=== PATIENT | male | born 1940 | race Caucasian/White ===

== ENCOUNTER 2016-12-23 19:04 | Inpatient (IN) | payer MEDICARE ==
[2016-12-23] MEDS ORDERED: ONDANSETRON 4 MG/2 ML VIAL IVP PRN (20:35)
[2016-12-23] MEDS ORDERED: HYDROcod/ACETAM 5/325 MG TABLET PO PRN (20:35)
[2016-12-23] MEDS ORDERED: ACETAMINOPHEN 325 MG TABLET PO PRN (20:35)
[2016-12-23] MEDS ORDERED: SODIUM CHLORIDE FLUSH 0.9% 10 ML SYRINGE IVP PRN (20:35)
[2016-12-23] MEDS ORDERED: ONDANSETRON ODT 4 MG TABLET TL PRN (20:35)
[2016-12-23] MEDS ORDERED: ACETAMINOPHEN 325 MG TABLET PO SCH (20:43)
[2016-12-23] MEDS: PANTOPRAZOLE 40 MG VIAL IVP SCH (21:57)
[2016-12-23] MEDS ORDERED: diphenhydrAMINE 25 MG CAPSULE PO SCH (22:00)
[2016-12-23] MEDS: SODIUM CHLORIDE FLUSH 0.9% 10 ML SYRINGE IVP SCH (22:00)
[2016-12-24] MEDS ORDERED: MORPHINE 2 MG/ML SYRINGE IVP PRN (02:35)
[2016-12-24] MEDS: PANTOPRAZOLE 40 MG VIAL IVP SCH ×2 (05:07→16:32)
[2016-12-24] MEDS: SODIUM CHLORIDE FLUSH 0.9% 10 ML SYRINGE IVP SCH ×3 (05:07→21:35)
[2016-12-24] MEDS: POLYETHYLENE GLYCOL 3350 17 GM PACKET PO SCH (08:17)
[2016-12-24] MEDS: SODIUM/POTASSIUM/MAG SULFATES 354 ML PREP KIT PO SCH (21:35)
[2016-12-25] MEDS: SODIUM CHLORIDE FLUSH 0.9% 10 ML SYRINGE IVP SCH ×3 (06:33→23:44)
[2016-12-25] MEDS: PANTOPRAZOLE 40 MG VIAL IVP SCH ×2 (06:33→15:19)
[2016-12-25] MEDS: POLYETHYLENE GLYCOL 3350 17 GM PACKET PO SCH (07:36)
[2016-12-25] MEDS: SODIUM/POTASSIUM/MAG SULFATES 354 ML PREP KIT PO SCH (08:02)
[2016-12-25] MEDS ORDERED: CYANOCOBALAMIN 1,000 MCG/ML VIAL IM ONE (11:00)
[2016-12-25] MEDS ORDERED: LACTATED RINGERS 1,000 ML IV ONE (12:38)
[2016-12-26] MEDS ORDERED: HALOPERIDOL 5 MG/ML VIAL IM ONE (00:02)
[2016-12-26] MEDS: PANTOPRAZOLE 40 MG VIAL IVP SCH (06:29)
[2016-12-26] MEDS: SODIUM CHLORIDE FLUSH 0.9% 10 ML SYRINGE IVP SCH (06:29)
[2016-12-26] MEDS ORDERED: PANTOPRAZOLE 40 MG TABLET PO SCH (07:00)
[2016-12-26] MEDS: POLYETHYLENE GLYCOL 3350 17 GM PACKET PO SCH (09:36)
[2016-12-26] MEDS ORDERED: CHOLECALCIFEROL 5,000 UNIT CAPSULE PO SCH (12:00)
[2016-12-26] MEDS ORDERED: FUROSEMIDE 20 MG TABLET PO SCH (12:00)
[2016-12-26] MEDS ORDERED: NEOSTIGMINE 1 MG/1 ML 10 ML MDV IVP ONE (14:30)
[2016-12-26] MEDS ORDERED: LIDOCAINE-MPF 2% 5 ML VIAL IM ONE (14:30)
[2016-12-26] MEDS ORDERED: SUCCINYLCHOLINE 200 MG/10 ML VIAL IVP ONE (14:30)
[2016-12-26] MEDS ORDERED: PROPOFOL 1000 MG/100 ML IV ONE (14:30)
[2016-12-26] MEDS ORDERED: GLYCOPYRROLATE 1 MG/5 ML VIAL IVP ONE (14:30)
== END 2016-12-26 14:00 | disposition home or self-care (01) | DRG 699 ==
PROC: 0D5H8ZZ Destruction of Cecum, Via Natural or Artificial Opening Endoscopic (ICD-10-PCS; principal; 2016-12-23)
PROC: 0D5M8ZZ Destruction of Descending Colon, Via Natural or Artificial Opening Endoscopic (ICD-10-PCS; principal; 2016-12-23)
PROC: 0DB68ZX Excision of Stomach, Via Natural or Artificial Opening Endoscopic, Diagnostic (ICD-10-PCS; principal; 2016-12-23)
PROC: 0D5K8ZZ Destruction of Ascending Colon, Via Natural or Artificial Opening Endoscopic (ICD-10-PCS; principal; 2016-12-23)
PROC: 30233N1 Transfusion of Nonautologous Red Blood Cells into Peripheral Vein, Percutaneous Approach (ICD-10-PCS; principal; 2016-12-23)
DX: N28.9 Disorder of kidney and ureter, unspecified (principal); K92.1 Melena; D64.9 Anemia, unspecified; D62 Acute posthemorrhagic anemia; K22.8 Other specified diseases of esophagus; B96.81 Helicobacter pylori [H. pylori] as the cause of diseases classified elsewhere; K29.60 Other gastritis without bleeding; K21.9 Gastro-esophageal reflux disease without esophagitis; E66.09 Other obesity due to excess calories; Z68.33 Body mass index [BMI] 33.0-33.9, adult; R41.89 Other symptoms and signs involving cognitive functions and awareness; K57.30 Diverticulosis of large intestine without perforation or abscess without bleeding; K44.9 Diaphragmatic hernia without obstruction or gangrene; D12.0 Benign neoplasm of cecum; D12.2 Benign neoplasm of ascending colon; D12.4 Benign neoplasm of descending colon; K64.8 Other hemorrhoids; K64.4 Residual hemorrhoidal skin tags

== ENCOUNTER 2016-12-28 14:28 | Inpatient (IN) | payer MEDICARE ==
[2016-12-28] MEDS ORDERED: ACETAMINOPHEN 325 MG TABLET PO PRN (15:05)
[2016-12-28] MEDS ORDERED: ONDANSETRON ODT 4 MG TABLET TL PRN (15:05)
[2016-12-28] MEDS ORDERED: SODIUM CHLORIDE FLUSH 0.9% 10 ML SYRINGE IVP PRN (15:05)
[2016-12-28] MEDS ORDERED: TETANUS/DIPHTHERIA TOXOID 0.5 ML SYRINGE IM ONE (18:45)
[2016-12-28] MEDS: PANTOPRAZOLE 40 MG TABLET PO SCH (20:29)
[2016-12-28] MEDS: SODIUM CHLORIDE 0.9% 1,000 ML IV SCH (20:30)
[2016-12-28] MEDS: SODIUM CHLORIDE FLUSH 0.9% 10 ML SYRINGE IVP SCH (22:35)
[2016-12-29] MEDS: SODIUM CHLORIDE 0.9% 1,000 ML IV SCH (06:11)
[2016-12-29] MEDS: SODIUM CHLORIDE FLUSH 0.9% 10 ML SYRINGE IVP SCH (06:11)
[2016-12-29] MEDS: PANTOPRAZOLE 40 MG TABLET PO SCH (06:11)
[2016-12-29] MEDS ORDERED: ASPIRIN EC 81 MG TABLET PO SCH (09:00)
[2016-12-29] MEDS ORDERED: POLYETHYLENE GLYCOL 3350 17 GM PACKET PO SCH (09:00)
[2016-12-29] MEDS ORDERED: GADOBUTROL 10 MMOL/10 ML VIAL IVP ONE (09:30)
[2016-12-29] MEDS ORDERED: ATORVASTATIN 10 MG TABLET PO SCH (21:00)
== END 2016-12-29 13:51 | disposition home or self-care (01) | DRG 65 ==
DX: I63.9 Cerebral infarction, unspecified (principal); D62 Acute posthemorrhagic anemia; R40.4 Transient alteration of awareness; K21.9 Gastro-esophageal reflux disease without esophagitis; K44.9 Diaphragmatic hernia without obstruction or gangrene; E66.9 Obesity, unspecified; Z68.34 Body mass index [BMI] 34.0-34.9, adult; Z79.899 Other long term (current) drug therapy; S61.210A Laceration without foreign body of right index finger without damage to nail, initial encounter; W45.8XXA Other foreign body or object entering through skin, initial encounter; Y92.009 Unspecified place in unspecified non-institutional (private) residence as the place of occurrence of the external cause

== ENCOUNTER 2017-07-23 12:05 | Inpatient (IN) | payer MEDICARE ==
[2017-07-23] MEDS ORDERED: SODIUM CHLORIDE 0.9% 1,000 ML IV ONE ×2 (12:31→13:24)
[2017-07-23 12:50] LABS: BASOPHILS % (AUTO) 0.2 %; EOSINOPHILS % (AUTO) 0.5 %; HCT - HEMATOCRIT 28.9 % (42.0-52.0); HGB - HEMOGLOBIN 9.8 g/dL (14.0-18.0); LYMPHOCYTES % (AUTO) 2.8 %; MEAN CORPUSCULAR HEMOGLOBIN 28.9 pg (27.0-31.0); MEAN CORPUSCULAR HGB CONC 33.8 g/dL (32.0-36.0); MEAN CORPUSCULAR VOLUME 85.5 fL (80.0-94.0); MEAN PLATELET VOLUME 7.1 fL (7.4-11.4); MONOCYTES % (AUTO) 5.3 %; NEUTROPHILS % (AUTO) 91.2 %; RED BLOOD COUNT 3.37 10^6/uL (4.70-6.10); RED CELL DISTRIBUTION WIDTH 16.3 % (12.0-15.0)
[2017-07-23 12:54] LABS: INR 1.3 (0.8-1.2); PT - PROTHROMBIN TIME 14.1 secs (9.9-12.6)
[2017-07-23 12:59] LABS: ALBUMIN/GLOBULIN RATIO 0.8 (1.0-2.2); BILIRUBIN,TOTAL 0.5 mg/dL (0.2-1.0); CALCIUM 8.5 mg/dL (8.5-10.3); CREATININE 1.1 mg/dL (0.6-1.2); POTASSIUM 3.9 mmol/L (3.5-5.0); TOTAL PROTEIN 6.4 g/dL (6.7-8.2)
[2017-07-23 13:01] LABS: PARTIAL THROMBOPLASTIN TIME 24.4 secs (24.9-33.3)
[2017-07-23 13:08] LABS: BAND NEUTROPHILS % (MANUAL) 11 %; EOSINOPHILS % (MANUAL) 1 %; LYMPHOCYTES % (MANUAL) 2 %; NEUTROPHILS % (MANUAL) 74 %; TOTAL CELLS COUNTED 100
--- NOTE | 2017-07-23 13:08 | ED Physician Documentation ---
History of Present Illness - Stated complaint Stated Complaint: WEAKNESS - Chief complaint Chief Complaint: Abd Pain - History obtained from History obtained from: Patient, Family - History of Present Illness Timing: How many days ago (several) Pain level max: 2 Pain level now: 2 Improved by: rest Worsened by: walking - Additonal information Additional information: Patient is a 77-year-old male Who presents to the emergency department with 2 days of dark tarry stools. Has had a history of a GI bleed in the past. States last time this happened they could not find a reason. Denies any home medication use. Denies any alcohol. has been feeling weak over the past 2 days as well. has recurrent hiccups from his "hiatal hernia". Denies any falls. has had subjective fevers. No cough. States has had a decreased appetite over the past 2 days as well. Review of Systems Ten Systems: 10 systems reviewed and negative Constitutional: reports: Fever (subjective today) Eyes: denies: Decreased vision Ears: denies: Ear pain Nose: denies: Rhinorrhea / runny nose, Congestion Throat: denies: Sore throat Cardiac: denies: Chest pain / pressure Respiratory: denies: Cough GI: reports: Bloody / black stool (black). denies: Diarrhea, Hematemesis : denies: Dysuria Skin: denies: Rash Musculoskeletal: denies: Neck pain, Back pain Neurologic: denies: Headache PD PAST MEDICAL HISTORY - Past Medical History Past Medical History: Yes Cardiovascular: None Respiratory: None Neuro: TIA Endocrine/Autoimmune: None GI: GERD, GI bleed, Hiatal hernia : None HEENT: None Psych: None Musculoskeletal: None Derm: None - Past Surgical History Past Surgical History: Yes - Present Medications Home Medications: Ambulatory Orders Medication Instructions Recorded Confirmed No Known Home Medications [No 07/23/17 07/23/17 Known Home Medications] - Allergies Allergies/Adverse Reactions: Allergies Allergy/AdvReac Type Severity Reaction Status Date / Time No Known Drug Allergies Allergy Verified 07/23/17 12:14 - Social History Does the pt smoke?: No Smoking Status: Never smoker Does the pt drink ETOH?: No Does the pt have substance abuse?: No - Immunizations Immunizations are current?: Yes - POLST Patient has POLST: No PD ED PE NORMAL - Vitals Vital signs reviewed: Yes - General General: Alert and oriented X 3, No acute distress, Other (pale) - HEENT HEENT: Moist mucous membranes - Neck Neck: Supple, no meningeal sign - Cardiac Cardiac: RRR - Respiratory Respiratory: No respiratory distress, Clear bilaterally - Abdomen Abdomen: Soft, Non tender, Non distended - Rectal Rectal: Other (black stool, hemoccult + QC passed.) - Back Back: No spinal TTP - Derm Derm: Warm and dry - Extremities Extremities: No deformity, No tenderness to palpate - Neuro Neuro: Alert and oriented X 3, physics technician 2-12 intact, No motor deficit, No sensory deficit, Normal speech - Psych Psych: Normal mood, Normal affect, Other (poor historian) Results - Vitals Vitals: Vital Signs - 24 hr 07/23/17 07/23/17 12:12 13:43 Temperature 36.9 C 37.9 C H Heart Rate 88 73 Respiratory 20 12 Rate Blood Pressure 115/54 L 119/55 L O2 Saturation 96 96 Oxygen O2 Source Room air - EKG (time done) 1218 Rate: Rate (enter#) (77) Rhythm: NSR [place]: Normal Intervals: Normal VA QRS: Normal Ischemia: Normal ST segments, Other (early transition) - Labs Labs: Laboratory Tests 07/23/17 07/23/17 07/23/17 12:30 12:30 12:30 WBC 17.0 H RBC 3.37 L Hgb 9.8 L Hct 28.9 L MCV 85.5 MCH 28.9 MCHC 33.8 RDW 16.3 H Plt Count 229 MPV 7.1 L Neut # DRAINAGE INSPECTOR Lymph # DRAINAGE INSPECTOR Christian # DRAINAGE INSPECTOR Eos # DRAINAGE INSPECTOR Baso # DRAINAGE INSPECTOR Absolute Nucleated RBC DRAINAGE INSPECTOR Total Counted 100 Band Neuts % (Manual) 11 H Myelocytes % 4 H Nucleated RBC % DRAINAGE INSPECTOR Neutrophils # (Manual) 14.5 H Lymphocytes # (Manual) 0.3 L Monocytes # (Manual) 1.4 H Eosinophils # (Manual) 0.2 Manual Slide Review Indicated Platelet Morphology RARE GIANT PLATELETS RBC Morph Micro Appear 1+ ANISOCYTOSIS PT 14.1 H INR 1.3 H APTT 24.4 L Sodium 127 L Potassium 3.9 Chloride 90 L Carbon Dioxide 24 Anion Gap 13.0 BUN 25 H Creatinine 1.1 Estimated GFR (MDRD) 65 L Glucose 120 H Calcium 8.5 Total Bilirubin 0.5 AST 35 ALT 35 Alkaline Phosphatase 88 Total Protein 6.4 L Albumin 2.8 L Globulin 3.6 Albumin/Globulin Ratio 0.8 L Lipase 28 Urine Color Urine Clarity Urine pH Ur Specific [place] Urine Protein Urine Glucose (UA) Urine Ketones Urine Occult Blood Urine Nitrite Urine Bilirubin Urine Urobilinogen Ur Leukocyte Esterase Ur Microscopic Review Urine Culture Comments Blood Type Antibody Screen 07/23/17 07/23/17 13:04 13:52 WBC RBC Hgb Hct MCV MCH MCHC RDW Plt Count MPV Neut # Lymph # Christian # Eos # Baso # Absolute Nucleated RBC Total Counted Band Neuts % (Manual) Myelocytes % Nucleated RBC % Neutrophils # (Manual) Lymphocytes # (Manual) Monocytes # (Manual) Eosinophils # (Manual) Manual Slide Review Platelet Morphology RBC Morph Micro Appear PT INR APTT Sodium Potassium Chloride Carbon Dioxide Anion Gap BUN Creatinine Estimated GFR (MDRD) Glucose Calcium Total Bilirubin AST ALT Alkaline Phosphatase Total Protein Albumin Globulin Albumin/Globulin Ratio Lipase Urine Color YELLOW Urine Clarity CLEAR Urine pH 6.0 Ur Specific [place] 1.015 Urine Protein NEGATIVE Urine Glucose (UA) NEGATIVE Urine Ketones 15 H Urine Occult Blood NEGATIVE Urine Nitrite NEGATIVE Urine Bilirubin NEGATIVE Urine Urobilinogen 0.2 (NORMAL) Ur Leukocyte Esterase NEGATIVE Ur Microscopic Review NOT INDICATED Urine Culture Comments NOT INDICATED Blood Type O POSITIVE Antibody Screen NEGATIVE - Rads (name of study) ct abd/pelvis Radiology: Prelim report reviewed, EMP read contemporaneously, See rad report ( Cyst or fluid collection between the pancreatic head and duodenum with associated inflammatory changes, pancreatitis versus duodenitis. Follow-up is recommended to exclude neoplasm. 2. Right lung base infiltrate. 3. Diverticulosis and other chronic or incidental findings. ) PD MEDICAL DECISION MAKING - ED course Complexity details: reviewed old records, reviewed results, re-evaluated patient , considered differential, d/w patient, d/w family, d/w [facility] w[facility] consultant ED course: Patient is a 77-year-old male who presents to the emergency department with a GI bleed. He is anemic. Type and screen performed. Patient is also weak and has some alteration in his baseline mental status. CT scan reveals what appears to be duodenitis that would be consistent with his bleeding. Started on a PPI. Dr. Pedro will also consult surgery for further evaluation if needed. This document was made in part using voice recognition software. While efforts are made to proofread this document, sound alike and grammatical errors may occur. Departure - Departure Disposition: 66 [facility] DC/Xfer Clinical Impression: GI bleed Qualifiers: GI bleed type/associated pathology: melena Qualified Code(s): K92.1 - Melena Anemia Qualifiers: Anemia type: unspecified type Qualified Code(s): D64.9 - Anemia, unspecified Leukocytosis Qualifiers: Leukocytosis type: unspecified Qualified Code(s): D72.829 - Elevated white blood cell count, unspecified Condition: Stable Discharge Date/Time: 07/23/17 15:00
[2017-07-23 13:09] LABS: NP AUTO DIFFERENTIAL? YES; PLATELET MORPHOLOGY RARE GIANT PLATELETS (NORMAL)
[2017-07-23 13:10] LABS: NP MAN DIFFERENTIAL? NO
[2017-07-23] MEDS ORDERED: PANTOPRAZOLE 40 MG VIAL IVP STA (13:18)
[2017-07-23] MEDS ORDERED: ONDANSETRON 4 MG/2 ML VIAL IVP STA (13:19)
[2017-07-23] MEDS ORDERED: ONDANSETRON 4 MG/2 ML VIAL ONE (13:25)
[2017-07-23] MEDS ORDERED: PANTOPRAZOLE 40 MG VIAL ONE (13:26)
[2017-07-23] MEDS ORDERED: IOPAMIDOL-300 100 ML VIAL ONE (13:43)
[2017-07-23 14:09] LABS: BILIRUBIN,URINE NEGATIVE (NEGATIVE)
[2017-07-23 14:10] LABS: UA CHARGE (STRIP ONLY) YES; UR CULTURE IF IND NOT INDICATED
[2017-07-23] MEDS ORDERED: ONDANSETRON 4 MG/2 ML VIAL IVP PRN (14:18)
[2017-07-23] MEDS ORDERED: ONDANSETRON ODT 4 MG TABLET TL PRN (14:18)
[2017-07-23] MEDS ORDERED: IOPAMIDOL-300 100 ML VIAL IVP ONE (14:26)
--- NOTE | 2017-07-23 14:44 | CT Preliminary Report ---
Exam: CT ABDOMEN/PELVIS W/ IMPRESSION: 1. Cyst or fluid collection between the pancreatic head and duodenum with associated inflammatory thor nges, pancreatitis versus duodenitis. Follow-up is recommended to exclude neoplasm. 2. Right lung base infiltrate. 3. Diverticulosis and other chronic or incidental findings. [facility] SITE ID: [id number]
--- NOTE | 2017-07-23 14:46 | CT Report ---
EXAM: CT ABDOMEN AND PELVIS EXAM DATE: 07/23/2017 02:19 PM. CLINICAL HISTORY: Abd pain, melena. COMPARISONS: None. TECHNIQUE: Routine helical CT imaging was performed through the abdomen and pelvis. IV contrast: 100M L OF ISOVUE 300. Enteric contrast: No. Reconstructions: Coronal and sagittal. In accordance with CT protocol optimization, one or more of the following dose reduction techniques w ere utilized for this exam: automated exposure control, adjustment of mA and/or KV based on patient s ize, or use of iterative reconstructive technique. FINDINGS: Lung Bases: Patchy and somewhat nodular appearing infiltration in right lung base. Otherwise clear. N o effusion. Liver: Normal. No masses. Gallbladder/Bile Ducts: Unremarkable. Spleen: Normal. Pancreas: Hazy infiltration of fat adjacent to the pancreatic head with 2.5 cm fluid collection or cy stic lesion projecting between the pancreatic head and the second portion of the duodenum. Wall thick ening and hazy ill-definition of first and second portions of the duodenum. Adrenal Glands: Normal. Kidneys: Tiny cyst on the left. Otherwise unremarkable. No hydronephrosis. Peritoneal Cavity/Bowel: Mild to moderate colonic diverticulosis. No free fluid, free air or adenopat hy. No masses or acute inflammatory process. The appendix is well visualized and normal. Pelvic Organs: Normal. The bladder and visualized pelvic organs are within normal limits. Vasculature: No aneurysms or other significant abnormality. Bones: Prominent degenerative changes. Other: None. IMPRESSION: 1. Cyst or fluid collection between the pancreatic head and duodenum with associated inflammatory thor nges, pancreatitis versus duodenitis. Follow-up is recommended to exclude neoplasm. 2. Right lung base infiltrate. 3. Diverticulosis and other chronic or incidental findings. [facility] Referring Provider Line: [phone] SITE ID: [id number]
--- NOTE | 2017-07-23 16:37 | HISTORY & PHYSICAL EXAMINATION ---
DATE OF ADMISSION: 07/23/2017 PRIMARY CARE PROVIDER: Oseas Mcknight MD ADMITTING PROVIDER: Cleo Pedro MD CHIEF COMPLAINT: Weakness and black tarry stool. HISTORY OF PRESENT ILLNESS: This gentleman is an interesting person in that he presented on December 23, 2016, with a history of gradually worsening mental status changes, a change in personality, and found almost down in his home with bloody feces. At that time, he was treated as a GI bleed, transfused from a hemoglobin of 3. Upper and lower endoscopy were done, and no pathology was found other than diverticulosis. An antral biopsy had Helicobacter gastritis with intestinal metaplasia. 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 He was discharged on December 26, 2016, after this workup and was to see his primary care provider and be referred to a insurance billing clerk for possible video endoscopy. He returned December 28, 2016, with metabolic encephalopathy. He had cut his hand, did not remember how we did it. He is confused, lethargic. With that admission from December 28, 2016, to December 30, 2016, he had an internal capsule stroke. Between then and now, the patient has been in stable health. He has improved quite a bit mentally and is back to baseline, but in the last few days, his stools have become black, dark and tarry, foul-smelling. His hiatal hernia has been giving him hiccoughs nonstop. He does not have a history of alcohol abuse. He does not have cirrhosis or esophageal varices. In addition to the black tarry stools, he has been feeling very weak, very tired. He feels like he had fevers, but he can not tell me what the temperature is. He denies chest pain, abdominal pain. No appetite. The stools are black and tarry but there is no diarrhea. He was seen in the emergency room by Dr. Blackburn. Temperature was 36.9, blood pressure 115/54 with a heart rate of 88. He was an alert, oriented, elderly man. His stool was black, Hemoccult positive. No other real findings on physical exam. Hemoglobin was 9.8. This gentleman was discharged with a hemoglobin of 9.3 in December. PAST MEDICAL HISTORY 1. 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 2. GI bleed, unknown source, December 2016. Status post colonoscopy, status post EGD as above. 3. Morbid obesity. ALLERGIES: NO KNOWN DRUG ALLERGIES. MEDICATIONS: None. SOCIAL HISTORY: He was born in [place], [place]. He went to [employer]. 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 describes him as probably on the autistic spectrum scale of emotional encounter, one of the reasons that they ended up living in separate households since about 2014. There are still , but it is much more peaceful for them to live apart. She is his second . He has 2 grown sons from his first marriage but is not in contact with them. He has been living on [facility] since about 2014. He has no history of recreational substance abuse. No history of tobacco abuse. FAMILY HISTORY: Both his parents in their 80s and 90s. They did not have cancer, heart attack, stroke. They of old age. He has no siblings. His 2 grown sons are healthy as far as he knows. REVIEW OF SYSTEMS GENERAL: Much easier to obtain with this go-around. When I met him in December 2016 , he was lethargic with psychomotor slowing. Today, he is alert, denies any constitutional complaints of fevers, chills, sweats, or unexpected weight changes. That was until today when he felt like he could be having a fever, but he has not taken his temperature. ENT: He denies glaucoma or cataracts. Wears glasses. Denies deafness. He has no problems with swallowing. PULMONARY: He denies chest congestion, coughing, wheezing. He does not have a history of bronchitis or asthma. He does not have problems with allergies. CARDIAC: He denies any history of heart attack, angina, orthopnea, edema. He denies rheumatic heart disease or valvular heart disease. GASTROINTESTINAL: Positive as above. GENITOURINARY: He has decreased stream now but denies urgency, frequency, nocturia or dysuria or hematuria or flank pain. JOINTS: If he sits at the computer for too long, his back, neck and shoulders get a little bit stiff. Hands will sometimes gets stiff, but that has been chronic for quite some time. No new joint complaints. SKIN: Denies any new body rashes or lesions. PSYCHIATRIC: No history of depression, schizophrenia, but again, has difficulty with people in general and describes him on the autistic spectrum scale. 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 As far as he is concerned, the stroke has left him with no residuals. PHYSICAL EXAMINATION VITAL SIGNS: Temperature is 37.9 now. Pulse is 73. Blood pressure is 119/55. Respirations 12. He is a pleasant, large, middle-aged white male with snowy white champion and hair. Not wearing glasses. In no acute distress in the ER rney. HEAD AND NECK: Red cheeks with acne rosacea. Pupils reactive. Sclerae nonicteric. Speech is normal. Oral mucosa moist and pink. NECK: Supple without goiter, bruits or thyromegaly. LUNGS: Clear in a barrel chest without crackles, rhonchi, or wheezing, and he has no increased respiratory effort. CARDIOVASCULAR: PMI is normally placed with regular rate and rhythm. No murmurs. ABDOMEN: Obese, soft, and very minimal epigastric tenderness. Throughout the entire time I am with him in the emergency room and getting his history and doing his exam, he has been nonstop hiccups. He says that started about 2 days ago. He has got quiet bowel sounds. EXTREMITIES: Large but without clubbing or cyanosis. Trace edema where the ankle socks dig into his skin, but when I checked for pitting edema, none present. Good foot pulses. NEUROLOGIC: He is alert and oriented to person, place and time. I find no evidence of a stroke, and he has cranial nerves intact with one not tested. Hand grasp strength is good and normal. 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 He can lift both legs off the bed. No tremors. DIAGNOSTIC STUDIES: White cell count is 17. Hemoglobin is 9.8. Hematocrit 28.9. Platelets 229. At discharge December 28, 2016, white cell count was 8.7, hemoglobin 9.3, hematocrit 28.9, platelets 162. Today's differential is 11% bands, 4% myelocytes. INR is 1.3. Sodium 127, potassium 3.9, BUN 25, creatinine 1.1, random glucose 120, protein 6.4, albumin 2.8, direct bilirubin 0.5. AST and ALT are normal. Urinalysis has some ketonuria but is otherwise negative. Before to the floor, CT of the abdomen was done because of the hiccupping and epigastric discomfort. He has a hazy infiltration of fat adjacent to the pancreatic head with a 2.5 cm fluid collection or cystic lesion projecting between the pancreatic head and the second portion of the duodenum. He has wall thickening and hazy ill definition of the first and second portions of duodenum. Right lung base infiltrate. Chronic diverticulosis. No other acute findings. ASSESSMENT/PLAN 1. Chronic blood loss anemia and now with melena. The patient has a history of this from December of this year and no source of bleeding was found. We will need to speak to his primary care provider and see what the thought process was between then and now with regard to workup. The patient is vague about this, that or evasive and will not answer my questions, but he otherwise a compliant and pleasant individual. My suspicion is that he has not seen his PCP for followup which means he didn't get the GI evaluaiton. Differential diagnosis as a cause of his bleed could be a duodenal ulcer with perforation to the pancreas or the reverse of pancreas pressing against the second portion of the duodenum. Diverticular bleed. However, stool was black and tarry and I would think that diverticular bleed would be more bright red blood per rectum. a. PLAN: For the anemia, he will have hemoglobin checked every 6 hours. b. For the possibility of perforated ulcer, start on Protonix 40 mg IV push b.i.d.. c. To delineate better source of GI bleed, order nuclear medicine red cell tag scan. d. Surgery Consult with Dr. Rios. 2. Abnormal pancreatic head on CT. Differential diagnosis could be pancreatitis versus neoplasm. We will discuss with Radiology what other imaging study I can do to delineate this better. We will check tumor markers, as well. Will also order MRCP. 3. H. Pylori gastritis 12/2016. Will call Dr. Hoyt's office to find out if he ever saw her and whether he received treatment. 4. Deep vein thrombosis prophylaxis will be DAVIS hose. Encourage the patient to ambulate. We will avoid anticoagulation at this time because of risk of bleeding. 5. FULL CODE STATUS. JOB #: [id number] EXT JOB #:[id number] [id number]
[2017-07-23] MEDS: SODIUM CHLORIDE FLUSH 0.9% 10 ML SYRINGE IVP SCH (17:16)
[2017-07-23] MEDS: PANTOPRAZOLE 40 MG VIAL IVP SCH (17:16)
--- NOTE | 2017-07-23 17:26 | Nuclear Medicine Prelim Report ---
Exam: NM GI BLEED/TAGGED RBC IMPRESSION: Normal study. No scintigraphic evidence of active GI bleed. [facility] SITE ID: [id number]
--- NOTE | 2017-07-23 17:29 | Nuclear Medicine Report ---
EXAM: GASTROINTESTINAL BLEED LOCALIZATION STUDY WITH VASCULAR FLOW STUDY EXAM DATE: 07/23/2017 04:54 PM. CLINICAL HISTORY: Recurrent melena. EGG and colonoscope neg. COMPARISON: None. TECHNIQUE: The patient's own red blood cells were labeled with 29.3 mCi Tc-99m pertechnetate accordin g to department protocol. Following the administration of the radiolabeled red blood cells, dynamic f low images were acquired for the initial 2 minutes. Next, dynamic gamma camera imaging for a total of 60 minutes post injection was acquired from the anterior projection. Postvoid images were also acqui red. FINDINGS: No foci of progressive antegrade or retrograde radiotracer activity to suggest etiology of GI bleed. Physiological uptake in vasculature, spleen, liver, and bladder. IMPRESSION: Normal study. No scintigraphic evidence of active GI bleed. [facility] Referring Provider Line: [phone] SITE ID: [id number]
[2017-07-23 20:34] LABS: BASOPHILS % (AUTO) 0.3 %; EOSINOPHILS # (AUTO) 0.1 10^3/uL (0.0-0.7); EOSINOPHILS % (AUTO) 0.5 %; HCT - HEMATOCRIT 26.8 % (42.0-52.0); HGB - HEMOGLOBIN 8.9 g/dL (14.0-18.0); LYMPHOCYTES # (AUTO) 0.5 10^3/uL (1.5-3.5); LYMPHOCYTES % (AUTO) 3.3 %; MEAN CORPUSCULAR HEMOGLOBIN 28.6 pg (27.0-31.0); MEAN CORPUSCULAR HGB CONC 33.2 g/dL (32.0-36.0); MEAN CORPUSCULAR VOLUME 86.2 fL (80.0-94.0); MEAN PLATELET VOLUME 6.9 fL (7.4-11.4); MONOCYTES # (AUTO) 0.8 10^3/uL (0.0-1.0); MONOCYTES % (AUTO) 5.4 %; NEUTROPHILS # (AUTO) 13.1 10^3/uL (1.5-6.6); NEUTROPHILS % (AUTO) 90.5 %; RED CELL DISTRIBUTION WIDTH 16.9 % (12.0-15.0); UNCORRECTED WHITE BLOOD COUNT 14.4 x10^3/uL; WHITE BLOOD COUNT 14.4 x10^3/uL (4.8-10.8)
[2017-07-23 21:04] LABS: PLATELET ESTIMATE, MANUAL NORMAL (130-450,000) (NORMAL)
[2017-07-24 05:07] LABS: EOSINOPHILS # (AUTO) 0.1 10^3/uL (0.0-0.7); HGB - HEMOGLOBIN 8.6 g/dL (14.0-18.0)
[2017-07-24 05:15] LABS: BASOPHILS % (AUTO) 0.2 %; EOSINOPHILS % (AUTO) 0.7 %; HCT - HEMATOCRIT 26.2 % (42.0-52.0); LYMPHOCYTES # (AUTO) 0.6 10^3/uL (1.5-3.5); LYMPHOCYTES % (AUTO) 3.6 %; MEAN CORPUSCULAR HEMOGLOBIN 28.5 pg (27.0-31.0); MEAN CORPUSCULAR HGB CONC 32.9 g/dL (32.0-36.0); MEAN CORPUSCULAR VOLUME 86.6 fL (80.0-94.0); MONOCYTES # (AUTO) 0.9 10^3/uL (0.0-1.0); MONOCYTES % (AUTO) 5.7 %; NEUTROPHILS # (AUTO) 13.7 10^3/uL (1.5-6.6); NEUTROPHILS % (AUTO) 89.8 %; RED BLOOD COUNT 3.03 10^6/uL (4.70-6.10); UNCORRECTED WHITE BLOOD COUNT 15.3 x10^3/uL; WHITE BLOOD COUNT 15.3 x10^3/uL (4.8-10.8)
[2017-07-24 05:17] LABS: ALBUMIN/GLOBULIN RATIO 0.9 (1.0-2.2); BILIRUBIN,TOTAL 0.5 mg/dL (0.2-1.0); CALCIUM 7.9 mg/dL (8.5-10.3); CREATININE 1.1 mg/dL (0.6-1.2); POTASSIUM 3.9 mmol/L (3.5-5.0); TOTAL PROTEIN 5.6 g/dL (6.7-8.2)
[2017-07-24 05:55] LABS: PLATELET ESTIMATE, MANUAL NORMAL (130-450,000) (NORMAL); PLATELET MORPHOLOGY NORMAL APPEARANCE (NORMAL)
[2017-07-24 05:56] LABS: NP AUTO DIFFERENTIAL? NO; NP MAN DIFFERENTIAL? YES
[2017-07-24] MEDS: PANTOPRAZOLE 40 MG VIAL IVP SCH ×2 (06:02→16:10)
[2017-07-24] MEDS: SODIUM CHLORIDE FLUSH 0.9% 10 ML SYRINGE IVP PRN ×3 (06:02→19:57)
[2017-07-24] MEDS: SODIUM CHLORIDE FLUSH 0.9% 10 ML SYRINGE IVP SCH ×3 (06:02→20:37)
[2017-07-24] MEDS: POLYETHYLENE GLYCOL 3350 17 GM PACKET PO SCH (09:46)
[2017-07-24 10:43] LABS: BASOPHILS % (AUTO) 0.2 %; EOSINOPHILS # (AUTO) 0.1 10^3/uL (0.0-0.7); EOSINOPHILS % (AUTO) 0.6 %; HGB - HEMOGLOBIN 8.8 g/dL (14.0-18.0); LYMPHOCYTES # (AUTO) 0.4 10^3/uL (1.5-3.5); LYMPHOCYTES % (AUTO) 2.8 %; MEAN CORPUSCULAR HEMOGLOBIN 29.1 pg (27.0-31.0); MEAN CORPUSCULAR HGB CONC 33.8 g/dL (32.0-36.0); MEAN CORPUSCULAR VOLUME 85.9 fL (80.0-94.0); MEAN PLATELET VOLUME 6.5 fL (7.4-11.4); MONOCYTES # (AUTO) 0.9 10^3/uL (0.0-1.0); MONOCYTES % (AUTO) 5.9 %; NEUTROPHILS # (AUTO) 14.2 10^3/uL (1.5-6.6); NEUTROPHILS % (AUTO) 90.5 %; RED BLOOD COUNT 3.02 10^6/uL (4.70-6.10); RED CELL DISTRIBUTION WIDTH 16.8 % (12.0-15.0); UNCORRECTED WHITE BLOOD COUNT 15.7 x10^3/uL
[2017-07-24 11:21] LABS: PLATELET ESTIMATE, MANUAL NORMAL (130-450,000) (NORMAL); PLATELET MORPHOLOGY 1+ GIANT PLATELETS (NORMAL); WHITE BLOOD COUNT 15.7 x10^3/uL (4.8-10.8)
[2017-07-24 11:23] LABS: WBC MORPHOLOGY (MULTIPLE) NORMAL APPEARANCE (NORMAL)
--- NOTE | 2017-07-24 13:21 | MRI Report ---
EXAM: MR ABDOMEN WITHOUT CONTRAST (MR CHOLANGIOPANCREATOGRAPHY) EXAM DATE: 07/24/2017 11:05 AM. CLINICAL HISTORY: Pancreatic/duodenal inflammation. Negative endoscopy December 2016. COMPARISON: Abdominal CT with IV contrast prior day. TECHNIQUE: Multiplanar breath-hold T1 and T2 sequences obtained through the abdomen on an MR scanner. Dedicated 2D and 3D MRCP sequences obtained through the biliary and pancreatic ducts. No intravenous contrast given. Patient respiratory motion artifacts. FINDINGS: Lung Bases: Right lung base infiltrate was better demonstrated on prior CT. Bilateral lower lobe infi ltrates and/or atelectasis are noted on series 401 image 29. Liver: The liver has normal size, morphology and signal. No evidence of mass. The intrahepatic bile d ucts appear normal. CBD: The extrahepatic ducts appear normal. The CBD is 3 mm in diameter. Gallbladder: The gallbladder is partially distended and appears normal with no wall thickening or sto ne. Pancreas: Peripancreatic edema noted. The pancreatic duct measures 1-2 mm in diameter and appears nor mal with no stone or stricture. Spleen: The spleen appears normal. Kidneys and Adrenals: The kidneys appear normal with no mass or hydronephrosis. The adrenals appear n ormal. Bowel: Persistent 2.8 x 1.8 cm fluid collection medial to descending duodenum. Retroperitoneum: The retroperitoneal structures appear normal with no mass or lymphadenopathy. IMPRESSION: 1. Exam is concerning for perforated descending duodenal ulcer. Persistent fluid collection along the posteromedial aspect of proximal descending duodenum. Although this is a common location for diverti cula, a wall is not definitively demonstrated. Soft tissue edema is again noted adjacent to pancreas head and descending duodenum. No generalized free air evident. 2. Right lower lobe airspace disease was better demonstrated on CT prior day. 3. No choledocholithiasis or main pancreatic ductal dilatation evident. Case discussed with Dr. Pedro on day of exam at 1:08 PM. [facility] Referring Provider Line: [phone] SITE ID: [id number]
--- NOTE | 2017-07-24 14:05 | PROVIDER PROGRESS NOTE ---
Subjective - Prog Note Date Prog Note Date: 07/24/17 Prog Note Time: 14:02 - Subjective Pt reports feeling: No change Subjective: He continues to have uncontrollable hiccups. He was just so happy to have some food this morning after being n.p.o. for a nuclear medicine study as well as an MRCP. He is spiked a temperature this morning to 38.2. Continues to have mild epigastric abdominal pain Tired but denies chest pain, shortness of breath I did ask him about his follow-up with his primary care provider, Dr. Mcknight. It looks like he never followed up with his primary care provider. Nor did he follow-up with Dr. Hoyt. And as such never got a video endoscopy nor did he ever get treatment for his H. pylori status.I asked him what were the barriers to his follow-through. He is reply was basically to shrug his shoulders and said there was none. He just did not do it. Current Medications - Current Medications Current Medications: Active Medications Acetaminophen (Tylenol) 650 mg PO Q4HR PRN PRN Reason: Pain 1 to 4 Piperacillin Sod/Tazobactam (Sod 3.375 gm/ Sodium Chloride) 100 mls @ 200 mls/ hr IV Q6H [facility] Ondansetron HCl (Zofran Inj) 4 mg IVP Q6HR PRN PRN Reason: Nausea / Vomiting Ondansetron HCl (Zofran Odt) 4 mg TL Q6HR PRN PRN Reason: Nausea / Vomiting Pantoprazole Sodium (Protonix) 40 mg IVP BIDAC [facility] Last Admin: 07/24/17 06:02 Dose: 40 mg Polyethylene Glycol (Miralax) 17 gm PO DAILY [facility] Last Admin: 07/24/17 09:46 Dose: Not Given Sodium Chloride (Normal Saline Flush 0.9%) 10 ml IVP PRN PRN PRN Reason: NEEDED PER PROVIDER ORDERS Last Admin: 07/24/17 06:02 Dose: 10 ml Sodium Chloride (Normal Saline Flush 0.9%) 10 ml IVP Q8HR [facility] Last Admin: 07/24/17 06:02 Dose: 10 ml No Known Home Medications [No Known Home Medications] 07/23/17 Objective - Vital Signs/Intake & Output Reviewed Vital Signs: Yes Vital Signs: Vital Signs x48h Temp Pulse Resp BP Pulse Ox 07/24/17 08:00 37.9 C H 88 20 140/61 H 94 Intake & Output: Intake & Output 07/21/17 07/22/17 07/23/17 07/24/17 23:59 23:59 23:59 23:59 Intake Total 2100 Balance 2099 - Objective General Appearance: positive: No acute distress, Alert, Other (pale, elderly male WN, WD (centripital obesity) with , sitting up in chair with at bedside.) Eyes Bilateral: positive: PERRL, EOMI ENT: positive: Other (glasses. flaking eyelashes) Neck: negative: No JVD, Stiff neck, Carotid bruit Respiratory: negative: Chest non-tender, Wheezes, Rales, Rhonchi Cardiovascular: positive: Regular rate & rhythm, Systolic murmur. negative: Gallop/S4, Friction rub Abdomen: positive: No organomegaly, Nml bowel sounds, No distention, Tenderness (mild in epigastrium), Other (hiccups) Skin: positive: Warm, Dry, Pallor Extremities: positive: Full ROM, No pedal edema Neurologic/Psychiatric: positive: Oriented x3, CN's nml (2-12), Motor nml - Lab Results Fish Bones: 07/24/17 10:35 07/24/17 04:50 Other Labs: Lab Results x24hrs 07/24/17 07/24/17 07/24/17 Range/Units 10:35 04:50 04:50 WBC 15.7 H 15.3 H (4.8-10.8) x10^3/uL RBC 3.02 L 3.03 L (4.70-6.10) 10^6/uL Hgb 8.8 L 8.6 L (14.0-18.0) g/dL Hct 26.0 L 26.2 L (42.0-52.0) % MCV 85.9 86.6 (80.0-94.0) fL MCH 29.1 28.5 (27.0-31.0) pg MCHC 33.8 32.9 (32.0-36.0) g/dL RDW 16.8 H 17.0 H (12.0-15.0) % Plt Count 272 253 (130-450) 10^3/uL MPV 6.5 L 7.0 L (7.4-11.4) fL Neut # 14.2 H 13.7 H (1.5-6.6) 10^3/uL Lymph # 0.4 L 0.6 L (1.5-3.5) 10^3/uL Kleberg # 0.9 0.9 (0.0-1.0) 10^3/uL Eos # 0.1 0.1 (0.0-0.7) 10^3/uL Baso # 0.0 0.0 (0.0-0.1) 10^3/uL Absolute Nucleated RBC 0.00 0.00 x10^3/uL Band Neuts % (Manual) Not Reportable Nucleated RBC % 0.0 0.0 /100WBC Differential Comment MANUAL=AUTO DIFF Manual Slide Review Indicated WBC Morphology NORMAL APPEARANCE (NORMAL) Platelet Estimate NORMAL (130-450,000) NORMAL (130-450,000) (NORMAL) Platelet Morphology 1+ GIANT PLATELETS NORMAL APPEARANCE (NORMAL) RBC Morph Micro Appear 1+ HYPOCHROMASIA 1+ ANISOCYTOSIS (NORMAL) Sodium 129 L (135-145) mmol/L Potassium 3.9 (3.5-5.0) mmol/L Chloride 97 L (101-111) mmol/L Carbon Dioxide 24 (21-32) mmol/L Anion Gap 8.0 (6-13) BUN 19 (6-20) mg/dL Creatinine 1.1 (0.6-1.2) mg/dL Estimated GFR (MDRD) 65 L (>89) Glucose 112 H (70-100) mg/dL Calcium 7.9 L (8.5-10.3) mg/dL Total Bilirubin 0.5 (0.2-1.0) mg/dL AST 29 (10-42) IU/L ALT 29 (10-60) IU/L Alkaline Phosphatase 78 (42-121) IU/L Total Protein 5.6 L (6.7-8.2) g/dL Albumin 2.6 L (3.2-5.5) g/dL Globulin 3.0 (2.1-4.2) g/dL Albumin/Globulin Ratio 0.9 L (1.0-2.2) 07/23/ Range/Units 20:26 WBC 14.4 H (4.8-10.8) x10^3/uL RBC 3.10 L (4.70-6.10) 10^6/uL Hgb 8.9 L (14.0-18.0) g/dL Hct 26.8 L (42.0-52.0) % MCV 86.2 (80.0-94.0) fL MCH 28.6 (27.0-31.0) pg MCHC 33.2 (32.0-36.0) g/dL RDW 16.9 H (12.0-15.0) % Plt Count 236 (130-450) 10^3/uL MPV 6.9 L (7.4-11.4) fL Neut # 13.1 H (1.5-6.6) 10^3/uL Lymph # 0.5 L (1.5-3.5) 10^3/uL Kleberg # 0.8 (0.0-1.0) 10^3/uL Eos # 0.1 (0.0-0.7) 10^3/uL Baso # 0.0 (0.0-0.1) 10^3/uL Absolute Nucleated RBC 0.01 x10^3/uL Band Neuts % (Manual) Nucleated RBC % 0.0 /100WBC Differential Comment Manual Slide Review WBC Morphology (NORMAL) Platelet Estimate NORMAL (130-450,000) (NORMAL) Platelet Morphology (NORMAL) RBC Morph Micro Appear NORMAL APPEARANCE (NORMAL) Sodium (135-145) mmol/L Potassium (3.5-5.0) mmol/L Chloride (101-111) mmol/L Carbon Dioxide (21-32) mmol/L Anion Gap (6-13) BUN (6-20) mg/dL Creatinine (0.6-1.2) mg/dL Estimated GFR (MDRD) (>89) Glucose (70-100) mg/dL Calcium (8.5-10.3) mg/dL Total Bilirubin (0.2-1.0) mg/dL AST (10-42) IU/L ALT (10-60) IU/L Alkaline Phosphatase (42-121) IU/L Total Protein (6.7-8.2) g/dL Albumin (3.2-5.5) g/dL Globulin (2.1-4.2) g/dL Albumin/Globulin Ratio (1.0-2.2) Assessment/Plan - Problem List (1) GI bleed Impression: He presented as a few days of severe fatigue with 2 days of melena. He does not take nonsteroidals. Past medical history significant for a GI bleed in December 2016 with a hemoglobin of 3. He was transfused and at discharge his hemoglobin was 9. He did have an EGD and colonoscopy with that visit and EGD shows Helicobacter pylori gastritis. He never did follow through with proton pump inhibitors, nor did he ever see the surgeon in follow-up. He also did not do treatment for H. pylori. He never followed through with his physician Dr. Mcknight. His hemoglobin has been stable so far but has drifted 1 g down. He started at 9.8 on admission and is 8.8 now. Workup since admission has been in abdomen pelvis CT showing a fluid collection between the posterior duodenum and anterior pancreas. Pancreatic head is slightly fuzzy and inflamed. GI bleed scan, nuclear medicine shows a normal study with no scintigraphic evidence of GI bleed Unfortunately, his MRCP shows a large perforated duodenal ulcer. Plan: I have discussed the case with he and his . I have also discussed with Dr. Rios. Dr. Rios recommends transfer to a higher level of care. This patient may need a Whipple. Patient is amenable to transfer. Continue monitoring of hemoglobin and hematocrit and vital signs. He has had a fever so we will start Zosyn I have called [facility] and [facility]. They do not have beds. As such I have called [facility]. Transfuse as necessary. He has already been typed and screened Change to regular diet but he may need to return to NPO status. Qualifiers: GI bleed type/associated pathology: melena Qualified Code(s): K92.1 - Melena (2) H. pylori infection Impression: present on biopsy 12/2016. pathology sent to Dr. Perez, a [facility] physician, NOT Dr. Hoyt. As such she never saw the report. And the patient never followed up. Start treatment.
[2017-07-24] MEDS: PIPERACILLIN/TAZOBACTAM 3.375 GM in SODIUM CHLORIDE 0.9% MINIBAG 100 ML IV SCH ×2 (14:13→19:57)
[2017-07-24] MEDS: ACETAMINOPHEN 325 MG TABLET PO PRN (16:09)
[2017-07-24] MEDS: SODIUM CHLORIDE 0.9% 1,000 ML IV SCH (22:02)
[2017-07-25] MEDS: ACETAMINOPHEN 325 MG TABLET PO PRN ×3 (02:35→23:55)
[2017-07-25] MEDS: PIPERACILLIN/TAZOBACTAM 3.375 GM in SODIUM CHLORIDE 0.9% MINIBAG 100 ML IV SCH ×4 (02:36→20:10)
[2017-07-25] MEDS: SODIUM CHLORIDE FLUSH 0.9% 10 ML SYRINGE IVP SCH ×3 (05:57→20:15)
[2017-07-25] MEDS: PANTOPRAZOLE 40 MG VIAL IVP SCH ×2 (06:21→16:12)
[2017-07-25] MEDS: SODIUM CHLORIDE FLUSH 0.9% 10 ML SYRINGE IVP PRN ×2 (06:21→16:12)
[2017-07-25 06:25] LABS: HCT - HEMATOCRIT 27.6 % (42.0-52.0); HGB - HEMOGLOBIN 8.9 g/dL (14.0-18.0); MEAN CORPUSCULAR HEMOGLOBIN 28.5 pg (27.0-31.0); MEAN CORPUSCULAR HGB CONC 32.2 g/dL (32.0-36.0); MEAN CORPUSCULAR VOLUME 88.5 fL (80.0-94.0); MEAN PLATELET VOLUME 6.2 fL (7.4-11.4); RED BLOOD COUNT 3.12 10^6/uL (4.70-6.10); RED CELL DISTRIBUTION WIDTH 17.2 % (12.0-15.0); WHITE BLOOD COUNT 16.7 x10^3/uL (4.8-10.8)
[2017-07-25 06:33] LABS: ALBUMIN/GLOBULIN RATIO 0.8 (1.0-2.2); BILIRUBIN,TOTAL 0.8 mg/dL (0.2-1.0); BUN - BLOOD UREA NITROGEN 14 mg/dL (6-20); CARBON DIOXIDE - CO2 24 mmol/L (21-32); CHLORIDE 97 mmol/L (101-111); CREATININE 1.1 mg/dL (0.6-1.2); GFR - MDRD 65 (>89); GLUCOSE 103 mg/dL (70-100); MAGNESIUM 2.2 mg/dL (1.7-2.8); PHOSPHORUS 3.4 mg/dL (2.5-4.6); SODIUM 131 mmol/L (135-145); TOTAL PROTEIN 6.1 g/dL (6.7-8.2)
[2017-07-25 06:42] LABS: CALCIUM, IONIZED 1.09 mmol/L (1.15-1.33); VBG PH 7.365 (7.31-7.41)
[2017-07-25] MEDS: SODIUM CHLORIDE 0.9% 1,000 ML IV SCH ×2 (08:58→23:58)
[2017-07-25] MEDS: POLYETHYLENE GLYCOL 3350 17 GM PACKET PO SCH (10:25)
--- NOTE | 2017-07-25 11:46 | PROVIDER PROGRESS NOTE ---
Subjective - Prog Note Date Prog Note Date: 07/25/17 Prog Note Time: 11:44 - Subjective Pt reports feeling: No change Subjective: Yesterday he was up out of the bed, sitting in the chair, ambulating to the bathroom. He tells me that he is fine today. No change. But he has not gotten out of bed this morning. He had a fever to 39.2 last night. This morning he is more tachypneic at 24 with shallow respirations. O2 sat has dropped to 90% on 1-1/2-2 L. Yesterday he was 94% on 2 L. He denies any epigastric pain right now. He denies any abdominal pain at all. No diarrhea. No shortness of breath subjectively. No chest pain. No cough. Current Medications - Current Medications Current Medications: Active Medications Acetaminophen (Tylenol) 650 mg PO Q4HR PRN PRN Reason: Pain 1 to 4 Last Admin: 07/25/17 02:35 Dose: 650 mg Piperacillin Sod/Tazobactam (Sod 3.375 gm/ Sodium Chloride) 100 mls @ 200 mls/ hr IV Q6H [facility] Last Infusion: 07/25/17 09:30 Dose: Infused Sodium Chloride (Normal Saline 0.9%) 1,000 mls @ 83 mls/hr IV .Q12H3M [facility] Last Admin: 07/25/17 08:58 Dose: 83 mls/hr Ondansetron HCl (Zofran Inj) 4 mg IVP Q6HR PRN PRN Reason: Nausea / Vomiting Ondansetron HCl (Zofran Odt) 4 mg TL Q6HR PRN PRN Reason: Nausea / Vomiting Pantoprazole Sodium (Protonix) 40 mg IVP BIDAC [facility] Last Admin: 07/25/17 06:21 Dose: 40 mg Polyethylene Glycol (Miralax) 17 gm PO DAILY [facility] Last Admin: 07/25/17 10:25 Dose: 17 gm Sodium Chloride (Normal Saline Flush 0.9%) 10 ml IVP PRN PRN PRN Reason: NEEDED PER PROVIDER ORDERS Last Admin: 07/25/17 06:21 Dose: 10 ml Sodium Chloride (Normal Saline Flush 0.9%) 10 ml IVP Q8HR [facility] Last Admin: 07/25/17 05:57 Dose: Not Given No Known Home Medications [No Known Home Medications] 07/23/17 Objective - Vital Signs/Intake & Output Reviewed Vital Signs: Yes Vital Signs: Vital Signs x48h Temp Pulse Pulse Resp BP Pulse Ox 07/25/17 11:32 39.2 C H 98 21 92 07/25/17 09:30 24 90 L 07/25/17 07:46 37.0 C 100 16 147/68 H 93 07/25/17 05:10 36.6 C Intake & Output: Intake & Output 07/22/17 07/23/17 07/24/17 07/25/17 23:59 23:59 23:59 23:59 Intake Total 2100 220 1067.35 Output Total 100 620 Balance 2100 120 447.35 - Objective General Appearance: positive: No acute distress (By his subjective statement but he is tachypneic), Alert, Other (Tall, moderately overweight elderly white male who looks stated age. I think he is more glassy eyed than yesterday and affect is more muted) Eyes Bilateral: positive: PERRL, EOMI ENT: positive: Pharynx nml, Dry mucous membranes Neck: positive: No JVD, Trachea midline. negative: Stiff neck, Carotid bruit Respiratory: positive: Chest non-tender, Other (diminshed at bases). negative: Wheezes, Rales, Rhonchi Cardiovascular: positive: Regular rate & rhythm. negative: Gallop/S4, Friction rub Abdomen: positive: Non-tender, No organomegaly, Nml bowel sounds, No distention , Other (it's benign considering the pathology inside) Skin: positive: Warm (very hot to touch), Dry, Pallor Extremities: positive: Pedal edema (minimal). negative: Joint swelling Neurologic/Psychiatric: positive: Oriented x3, CN's nml (2-12), Motor nml - Lab Results Fish Bones: 07/25/17 06:15 07/25/17 06:15 Other Labs: Lab Results x24hrs 07/25/17 07/25/17 07/25/17 Range/Units 06:15 06:15 06:15 WBC (4.8-10.8) x10^3/uL RBC (4.70-6.10) 10^6/uL Hgb (14.0-18.0) g/dL Hct (42.0-52.0) % MCV (80.0-94.0) fL MCH (27.0-31.0) pg MCHC (32.0-36.0) g/dL RDW (12.0-15.0) % Plt Count (130-450) 10^3/uL MPV (7.4-11.4) fL VBG pH 7.365 (7.31-7.41) Ionized Calcium 1.09 L YES (1.15-1.33) mmol/L Sodium 131 L (135-145) mmol/L Potassium 4.0 (3.5-5.0) mmol/L Chloride 97 L (101-111) mmol/L Carbon Dioxide 24 (21-32) mmol/L Anion Gap 10.0 (6-13) BUN 14 (6-20) mg/dL Creatinine 1.1 (0.6-1.2) mg/dL Estimated GFR (MDRD) 65 L (>89) Glucose 103 H (70-100) mg/dL Lactic Acid 0.8 (0.5-2.2) mmol/L Calcium 8.0 L (8.5-10.3) mg/dL Phosphorus 3.4 (2.5-4.6) mg/dL Magnesium 2.2 (1.7-2.8) mg/dL Total Bilirubin 0.8 (0.2-1.0) mg/dL AST 37 (10-42) IU/L ALT 34 (10-60) IU/L Alkaline Phosphatase 88 (42-121) IU/L Total Protein 6.1 L (6.7-8.2) g/dL Albumin 2.7 L (3.2-5.5) g/dL Globulin 3.4 (2.1-4.2) g/dL Albumin/Globulin Ratio 0.8 L (1.0-2.2) 07/25/17 Range/Units 06:15 WBC 16.7 H (4.8-10.8) x10^3/uL RBC 3.12 L (4.70-6.10) 10^6/uL Hgb 8.9 L (14.0-18.0) g/dL Hct 27.6 L (42.0-52.0) % MCV 88.5 (80.0-94.0) fL MCH 28.5 (27.0-31.0) pg MCHC 32.2 (32.0-36.0) g/dL RDW 17.2 H (12.0-15.0) % Plt Count 308 (130-450) 10^3/uL MPV 6.2 L (7.4-11.4) fL VBG pH (7.31-7.41) Ionized Calcium (1.15-1.33) mmol/L Sodium (135-145) mmol/L Potassium (3.5-5.0) mmol/L Chloride (101-111) mmol/L Carbon Dioxide (21-32) mmol/L Anion Gap (6-13) BUN (6-20) mg/dL Creatinine (0.6-1.2) mg/dL Estimated GFR (MDRD) (>89) Glucose (70-100) mg/dL Lactic Acid (0.5-2.2) mmol/L Calcium (8.5-10.3) mg/dL Phosphorus (2.5-4.6) mg/dL Magnesium (1.7-2.8) mg/dL Total Bilirubin (0.2-1.0) mg/dL AST (10-42) IU/L ALT (10-60) IU/L Alkaline Phosphatase (42-121) IU/L Total Protein (6.7-8.2) g/dL Albumin (3.2-5.5) g/dL Globulin (2.1-4.2) g/dL Albumin/Globulin Ratio (1.0-2.2) Assessment/Plan - Problem List (1) Perforated duodenal ulcer with hemorrhage Impression: He presented as a few days of severe fatigue with 2 days of melena. He does not take nonsteroidals. Past medical history significant for a GI bleed in December 2016 with a hemoglobin of 3. He was transfused and at discharge his hemoglobin was 9. He did have an EGD and colonoscopy with that visit and EGD shows Helicobacter pylori gastritis. He never did follow through with proton pump inhibitors, nor did he ever see the surgeon in follow-up. He also did not do treatment for H. pylori. He never followed through with his physician Dr. Mcknight. His hemoglobin has been stable so far but has drifted 1 g down. He started at 9.8 on admission and is 8.9 now. Stable for two days. Workup since admission has been in abdomen pelvis CT showing a fluid collection between the posterior duodenum and anterior pancreas. Pancreatic head is slightly fuzzy and inflamed. GI bleed scan, nuclear medicine shows a normal study with no scintigraphic evidence of GI bleed Unfortunately, his MRCP shows a large perforated duodenal ulcer. I have discussed the case with he and his . I have also discussed with Dr. Rios. Dr. Rios recommended transfer to a higher level of care. This patient may need a Whipple. Patient was amenable to transfer. I started Zosyn yesterday for fever and still with fever today at 2 am and now. I have called [facility] and [facility] 07/24. They do not have beds. I have called [facility] 07/[address] Lewis feels we can handle this patient at a critical access hospital even though we don't have IR and our surgeon does not feel our facility should take care of such a patient. I called Dr. Le at [facility] and she also feels we can temporize with antibiotics, NPO, PPI. Transfuse as necessary. He has already been typed and screened Today seen by Dr. Rios, and give it 24 more hours. If still with fever, would like a transfer. I will order blood cultures. Qualifiers: GI bleed type/associated pathology: melena Qualified Code(s): K92.1 - Melena (2) H. pylori infection Impression: present on biopsy 12/2016. pathology sent to Dr. Perez, a [facility] physician, NOT Dr. Hoyt. As such she never saw the report. And the patient never followed up. Start treatment. (3) Hypoxia Impression: and fever in a morbidly obese man who has perforated viscus. DD: pneumonia (he is using incentive spirometry and not coughing) PE incipient sepsis from abd Plan: check CXR Check blood cultures If gets cp, check CTA check q4h and watch closely
--- NOTE | 2017-07-25 14:47 | XRAY Preliminary Report ---
Exam: XR CHEST 1 VIEW IMPRESSION: Bilateral bronchial wall thickening with patchy and nodular airspace disease bilaterally suggestive of bronchopneumonia. [facility] SITE ID: [id number]
--- NOTE | 2017-07-25 14:49 | XRAY Report ---
EXAM: CHEST RADIOGRAPHY EXAM DATE: 07/25/2017 11:59 AM. CLINICAL HISTORY: New hypoxia and fever with tachypnea. COMPARISON: Chest x-ray 12/23/2016. TECHNIQUE: 1 view. FINDINGS: Lungs/Pleura: No pleural effusion or pneumothorax. Bilateral bronchial wall thickening with patchy an d nodular bilateral airspace disease in the mid to lower lungs. Mediastinum: Normal heart size with minimal aortic tortuosity. Other: None. IMPRESSION: Bilateral bronchial wall thickening with patchy and nodular airspace disease bilaterally suggestive of bronchopneumonia. [facility] Referring Provider Line: [phone] SITE ID: [id number]
--- NOTE | 2017-07-25 23:38 | PROVIDER PROGRESS NOTE ---
Subjective - General Admit Date: 07/23/17 - Review of Systems General: positive: No symptoms Gastrointestinal: positive: No symptoms Objective - Patient Data Vital Signs: Vital Signs x48h Temp Pulse Resp BP Pulse Ox 07/25/17 17:24 38.0 C H 88 24 122/57 L 92 Weight: Weight 07/23/17 07/24/17 07/25/17 23:59 23:59 23:59 Weight (kg) 108.5 kg Intake & Output: Intake and Output Totals x24h 07/23/17 07/24/17 07/25/17 23:59 23:59 23:59 Intake Total 2100 220 2417.35 Output Total 100 1070 Balance 2100 120 1347.35 - Lab Results Lab Results: 07/25/17 06:15 07/25/17 06:15 Other Lab Results: Lab Results x24hrs 07/25/17 07/25/17 07/25/17 Range/Units 06:15 06:15 06:15 WBC (4.8-10.8) x10^3/uL RBC (4.70-6.10) 10^6/uL Hgb (14.0-18.0) g/dL Hct (42.0-52.0) % MCV (80.0-94.0) fL MCH (27.0-31.0) pg MCHC (32.0-36.0) g/dL RDW (12.0-15.0) % Plt Count (130-450) 10^3/uL MPV (7.4-11.4) fL VBG pH 7.365 (7.31-7.41) Ionized Calcium 1.09 L YES (1.15-1.33) mmol/L Sodium 131 L (135-145) mmol/L Potassium 4.0 (3.5-5.0) mmol/L Chloride 97 L (101-111) mmol/L Carbon Dioxide 24 (21-32) mmol/L Anion Gap 10.0 (6-13) BUN 14 (6-20) mg/dL Creatinine 1.1 (0.6-1.2) mg/dL Estimated GFR (MDRD) 65 L (>89) Glucose 103 H (70-100) mg/dL Lactic Acid 0.8 (0.5-2.2) mmol/L Calcium 8.0 L (8.5-10.3) mg/dL Phosphorus 3.4 (2.5-4.6) mg/dL Magnesium 2.2 (1.7-2.8) mg/dL Total Bilirubin 0.8 (0.2-1.0) mg/dL AST 37 (10-42) IU/L ALT 34 (10-60) IU/L Alkaline Phosphatase 88 (42-121) IU/L Total Protein 6.1 L (6.7-8.2) g/dL Albumin 2.7 L (3.2-5.5) g/dL Globulin 3.4 (2.1-4.2) g/dL Albumin/Globulin Ratio 0.8 L (1.0-2.2) 07/25/17 Range/Units 06:15 WBC 16.7 H (4.8-10.8) x10^3/uL RBC 3.12 L (4.70-6.10) 10^6/uL Hgb 8.9 L (14.0-18.0) g/dL Hct 27.6 L (42.0-52.0) % MCV 88.5 (80.0-94.0) fL MCH 28.5 (27.0-31.0) pg MCHC 32.2 (32.0-36.0) g/dL RDW 17.2 H (12.0-15.0) % Plt Count 308 (130-450) 10^3/uL MPV 6.2 L (7.4-11.4) fL VBG pH (7.31-7.41) Ionized Calcium (1.15-1.33) mmol/L Sodium (135-145) mmol/L Potassium (3.5-5.0) mmol/L Chloride (101-111) mmol/L Carbon Dioxide (21-32) mmol/L Anion Gap (6-13) BUN (6-20) mg/dL Creatinine (0.6-1.2) mg/dL Estimated GFR (MDRD) (>89) Glucose (70-100) mg/dL Lactic Acid (0.5-2.2) mmol/L Calcium (8.5-10.3) mg/dL Phosphorus (2.5-4.6) mg/dL Magnesium (1.7-2.8) mg/dL Total Bilirubin (0.2-1.0) mg/dL AST (10-42) IU/L ALT (10-60) IU/L Alkaline Phosphatase (42-121) IU/L Total Protein (6.7-8.2) g/dL Albumin (3.2-5.5) g/dL Globulin (2.1-4.2) g/dL Albumin/Globulin Ratio (1.0-2.2) - Current Medications Current Medications: Current Medications Generic Name Dose Route Start Last Admin Trade Name Freq PRN Reason Stop Dose Admin Acetaminophen 650 mg 07/23/17 14:18 07/25/17 16:10 Tylenol PO 650 mg Q4HR PRN Administration Pain 1 to 4 Piperacillin Sod/Tazobactam 100 mls @ 200 mls/hr 07/24/17 14:00 07/25/17 20: 40 Sod 3.375 gm/ Sodium Chloride IV Infused Q6H [facility] Infusion Sodium Chloride 1,000 mls @ 83 mls/hr 07/24/17 22:00 07/25/17 21:34 Normal Saline 0.9% IV Infused .Q12H3M [facility] Infusion Pantoprazole Sodium 40 mg 07/23/17 16:00 07/25/17 16:12 Protonix IVP 40 mg BIDAC [facility] Administration Polyethylene Glycol 17 gm 07/24/17 09:00 07/25/17 10:25 Miralax PO 17 gm DAILY [facility] Administration Sodium Chloride 10 ml 07/23/17 14:18 07/25/17 16:12 Normal Saline Flush 0.9% IVP 10 ml PRN PRN Administration NEEDED PER PROVIDER ORDERS Sodium Chloride 10 ml 07/23/17 22:00 07/25/17 20:15 Normal Saline Flush 0.9% IVP Not Given Q8HR [facility] - Physical Exam Abdomen: positive: Non-tender, Nml bowel sounds Impression/Plan - Problem List Problem List: Probable perforated 2nd portion duodenal ulcer. No peritoneal signs or abdominal symptoms. He has not had a bowel movement since admission. Hemoglobin stable. He still has elevated wbc and fever with iv antibiotics just starting. Treat H pylori Continue zosyn Npo, IV fluids consider picc line as the ulcer could take time to heal and may need tpn If continues to have elevated wbc may consider aspiration of peripancreatic fluid collection f/u ct scan if condition worsens or if wbc resolves.
[2017-07-26] MEDS: PIPERACILLIN/TAZOBACTAM 3.375 GM in SODIUM CHLORIDE 0.9% MINIBAG 100 ML IV SCH ×2 (02:05→08:53)
[2017-07-26] MEDS ORDERED: chlorproMAZINE 25 MG TABLET PO PRN (02:19)
[2017-07-26 05:40] LABS: HCT - HEMATOCRIT 26.3 % (42.0-52.0); HGB - HEMOGLOBIN 8.6 g/dL (14.0-18.0); MEAN CORPUSCULAR HGB CONC 32.8 g/dL (32.0-36.0); MEAN CORPUSCULAR VOLUME 88.4 fL (80.0-94.0); MEAN PLATELET VOLUME 6.3 fL (7.4-11.4); RED BLOOD COUNT 2.98 10^6/uL (4.70-6.10); RED CELL DISTRIBUTION WIDTH 17.1 % (12.0-15.0); WHITE BLOOD COUNT 18.2 x10^3/uL (4.8-10.8)
[2017-07-26 05:49] LABS: ALBUMIN/GLOBULIN RATIO 0.7 (1.0-2.2); BILIRUBIN,TOTAL 0.7 mg/dL (0.2-1.0); BUN - BLOOD UREA NITROGEN 13 mg/dL (6-20); CALCIUM 7.8 mg/dL (8.5-10.3); CARBON DIOXIDE - CO2 24 mmol/L (21-32); CHLORIDE 97 mmol/L (101-111); CREATININE 1.2 mg/dL (0.6-1.2); GFR - MDRD 58 (>89); GLUCOSE 113 mg/dL (70-100); MAGNESIUM 2.2 mg/dL (1.7-2.8); PHOSPHORUS 3.4 mg/dL (2.5-4.6); POTASSIUM 4.3 mmol/L (3.5-5.0); SODIUM 130 mmol/L (135-145)
[2017-07-26 06:04] LABS: CALCIUM, IONIZED 1.06 mmol/L (1.15-1.33); VBG PH 7.388 (7.31-7.41)
[2017-07-26] MEDS: PANTOPRAZOLE 40 MG VIAL IVP SCH (06:20)
[2017-07-26] MEDS: SODIUM CHLORIDE FLUSH 0.9% 10 ML SYRINGE IVP SCH ×2 (06:20→08:57)
[2017-07-26] MEDS: POLYETHYLENE GLYCOL 3350 17 GM PACKET PO SCH (08:44)
[2017-07-26] MEDS: ACETAMINOPHEN 325 MG TABLET PO PRN (08:45)
[2017-07-26] MEDS ORDERED: FUROSEMIDE 20 MG/2 ML VIAL IVP STA (08:48)
[2017-07-26] MEDS ORDERED: ALBUTEROL NEB 2.5 MG/3 ML INH PRN (08:49)
[2017-07-26] MEDS ORDERED: levoFLOXacin 750 MG/150 ML 750 MG/150 ML BAG IV SCH (09:00)
--- NOTE | 2017-07-26 10:57 | XRAY Report ---
FRONTAL CHEST: 07/26/2017 CLINICAL INDICATION: Nasogastric tube placement. FINDINGS: Frontal view of the chest is compared to previous film of 07/25/2017. The nasogastric tube is looped in the esophagus, with the tip at the level of the cali. Interstitia l opacities appear stable. No effusion or pneumothorax is seen. The cardiac silhouette is within norm al limits. IMPRESSION: NASOGASTRIC TUBE LOOPED IN THE ESOPHAGUS. JOB #: [id number] EXT JOB #:[id number]
--- NOTE | 2017-07-26 11:15 | XRAY Report ---
FRONTAL CHEST: 07/26/2017 CLINICAL INDICATION: Nasogastric tube placement. FINDINGS: Frontal view of the chest demonstrates repositioning of the nasogastric tube, which is now in the right lower lobe bronchus. Parenchymal lung disease appears stable. The apices are excluded. IMPRESSION: NASOGASTRIC TUBE IN THE RIGHT LOWER LOBE BRONCHUS. JOB #: [id number] EXT JOB #:[id number]
--- NOTE | 2017-07-26 12:48 | DISCHARGE SUMMARY ---
Discharge Summary Admit Date: 07/26/17 Condition at Discharge: Stable - ALLERGIES Allergies/Adverse Reactions: Allergies Allergy/AdvReac Type Severity Reaction Status Date / Time No Known Drug Allergies Allergy Verified 07/23/17 12:14 - MEDICATIONS Home Medications: Ambulatory Orders Medication Instructions Recorded Confirmed No Known Home Medications [No 07/23/17 07/23/17 Known Home Medications] - LABS Result Diagrams: 07/26/17 05:20 07/26/17 05:20
[2017-07-26 13:38] VITALS: BP 118/69
--- NOTE | 2017-07-26 13:38 | DISCHARGE SUMMARY ---
DATE OF ADMISSION: 07/23/17 DATE OF DISCHARGE: 07/26/17 DISCHARGE DIAGNOSES 1. Perforated duodenal ulcer. 2. Inflammation of the pancreas secondary to perforation. 3. Helicobacter pylori infection, as yet untreated. 4. Acute respiratory failure with hypoxia. 5. Hospital-acquired pneumonia. 6. Melena. PRINCIPAL PROCEDURES 1. Abdomen and pelvis CT showing fluid between the posterior two-thirds of the duodenal area and the head of the pancreas. Probably a contained perforation with inflammation of the pancreatic head. 2. For GI bleeding, Nuclear Medicine tagged scan for bleeding was negative for source of bleeding. 3. MRCP with perforated descending duodenal ulcer. Persistent fluid collection along the posteromedial aspect of the proximal descending duodenum. No diverticula demonstrated. Soft tissue edema noted adjacent to the pancreas head and descending duodenum. Right lower lobe airspace disease noted. No choledocholithiasis or pancreatic duct dilatation. 4. Chest x-ray on 07/25/2017 and 07/26/2017 shows worsening patchy and nodular airspace disease bilaterally, suggestive of bronchopneumonia. 5. Blood cultures, 2 sets, negative on 07/25/2017. MEDICATIONS ON TRANSFER TO [place] 1. Tylenol. 2. Thorazine. 3. Levaquin 750. 4. Zosyn 3.375. 5. Zofran p.r.n. 6. Protonix IV. 7. Normal saline. 8. One dose of Lasix. 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 He is a very focused gentleman whose main concern is getting an open source of programming for architectural design on to the Internet in the next 2-3 months. He is very distressed by this current illness episode. He was hospitalized in December 2016 for a GI bleed and melanotic stool and a hemoglobin of 3. He underwent upper and lower endoscopy where gastritis was found, but no source of bleeding. He was H pylori positive. He did not follow through with seeing primary care provider or referral for GI specialist, and never received treatment for his H pylori. He is a nonsmoker and does not do nonsteroidals. He then returned with 2-3 days of weakness, fatigue and recurrent melanotic stool. With the previous episode it had been a couple of months before he came in. With this episode, hemoglobin is 9.8, white cell count is 17, platelets of 229. Over the course of the first day or two, the patient was identified as having a perforated duodenal ulcer. At all times his abdominal exam has been relatively benign in that he does not have rebound or guarding. He does have constant hiccupping. He was persistently telling us that his hiccuping was from his gastroesophageal reflux disease and it has taken several efforts on my attempt at education to let him know that we think it is from the perforated ulcer. We felt that he had a previous GI bleed, but that seemed to be abated. Most likely the source was his duodenal ulcer, but now that it is perforated and contained, he is not actively hemorrhaging. Our general surgeon did not feel that the patient was a candidate for this facility and asked me to transfer him. I attempted transfer to but they have no beds. I attempted transfer to [facility], who felt that this patient could stay at a critical access hospital and get interventional radiology for the developing abscess. I then spoke to [facility]. [facility] surgeon felt that we could manage this patient temporarily. Try proton pump inhibitors, n.p.o. status, and watch the patient carefully. If the patient did not improve, to then re-call [facility] to see if they could have a bed. Between that conversation and now, over 24 hours, the patient has deteriorated with regards to acute respiratory failure with hypoxia. He is now identified as having a progressive hospital-acquired pneumonia. Antibiotic therapy of Zosyn continued and Levaquin was added. He was transferred to ICU for caution sake, not because of hemodynamic instability. On the time of transfer, temperature is 37.6, pulse is 103, blood pressure is 134/57, and he is breathing at 22 breaths a minute and he is 93% saturated on 3 liters. While he had audible gurgling and wheezing across the room without a stethoscope this morning, he is improved to the point that you need to put a stethoscope on his chest to hear his crackles and rhonchi. He is able to speak in complete sentences. He is an alert, oriented , very intelligent gentleman who is very fixated in ideas and we need to spend quite a bit of time educating him. He does express his dismay at feeling that he has been swept up into the system and things are moving so quickly and beyond his control and ability to just ponder and process. His abdomen continues to be distended but soft, normal bowel sounds. No rebound, no guarding. Extremities are warm and he has no edema. He is able to sit up at the side of the bed, and use his arms appropriately for repositioning and comfort. He does ask if he can treat himself at home medically with the correct diet and medications, and I gently explained why that was not possible at this time. I have re-consulted with [facility] and they will accept the patient in transfer today. While his walled off perforated duodenal ulcer appears stable at this time, he is decompensating from a respiratory perspective. The general surgeon on-call is accepting the patient. She will then figure out if they really need to keep the patient on her service and will most likely be transferring the patient to the hospitalist service. Greater than 30 minutes was spent coordinating discharge. JOB #: [id number] EXT JOB #:[id number] MARIIA
== END 2017-07-26 14:00 | disposition short-term general hospital (02) | DRG 377 ==
LOC: ED 12:05 → ICU 14:18 → UNDOADMIN 14:18 → MS3 14:18 → UNDOADMIN 07-26 09:29 → ICU 07-26 09:29 → MS3 07-26 10:17 → ICU 07-26 10:17 → UNDODISIN 07-26 14:00
PROVIDERS: ADMIT Specialist; ATTEND Specialist
DX: K92.1 Melena (principal); D64.9 Anemia, unspecified; D72.829 Elevated white blood cell count, unspecified; K21.9 Gastro-esophageal reflux disease without esophagitis; K26.6 Chronic or unspecified duodenal ulcer with both hemorrhage and perforation; K65.1 Peritoneal abscess; J96.01 Acute respiratory failure with hypoxia; J18.9 Pneumonia, unspecified organism; K85.90 Acute pancreatitis without necrosis or infection, unspecified; Y95 Nosocomial condition; K29.70 Gastritis, unspecified, without bleeding; B96.81 Helicobacter pylori [H. pylori] as the cause of diseases classified elsewhere; D50.0 Iron deficiency anemia secondary to blood loss (chronic); K44.9 Diaphragmatic hernia without obstruction or gangrene; Z86.73 Personal history of transient ischemic attack (TIA), and cerebral infarction without residual deficits; E66.01 Morbid (severe) obesity due to excess calories; Z68.32 Body mass index [BMI] 32.0-32.9, adult; Z91.19 Patient's noncompliance with other medical treatment and regimen
CPT/HCPCS: 36415; 71010; 74177; 74181; 78278; 80053; 81001; 81003; 82330; 83605; 83690; 83735; 84100; 85025; 85610; 85730; 86850; 86900; 86901; 87040; 87086; 87150; 93005; 93306; 96361; 96374; 96375; 99283; 99284; 99285

== ENCOUNTER 2018-11-05 11:15 | Outpatient (CLI) | payer SELFPAY | END 2018-11-05 11:16 | disposition EMS.NT | LOC: EMS 11:15 | PROVIDERS: ATTEND Surgery ==